=== PATIENT | female | born 1940 | race Caucasian/White ===

== ENCOUNTER 2017-04-04 10:18 | Emergency (ER) | payer MEDICARE, OTHER ==
[~2017-04-04] VITALS: Ht 152.4 cm; Wt 64.0 kg
[2017-04-04 10:28] VITALS: BP 146/77; PULSE 96; RESP 16; TEMP 97.8; O2SAT 97
[2017-04-04] MEDS ORDERED: SODIUM CHLORIDE 0.9% FLUSH 10 ML FLUSH IV FLUSH PRN (10:45)
[2017-04-04] MEDS ORDERED: AMLO5 PO (11:00)
[2017-04-04] MEDS ORDERED: COZA100T PO (11:00)
[2017-04-04] MEDS ORDERED: CARV3.125 PO (11:00)
[2017-04-04] MEDS ORDERED: FURO1TAB62 PO (11:00)
[2017-04-04] MEDS ORDERED: ZOCO20TA PO (11:00)
[2017-04-04] MEDS ORDERED: ADVA500A INH (11:00)
[2017-04-04] MEDS ORDERED: POTA10TA2 PO (11:00)
[2017-04-04] MEDS ORDERED: APIX5TAB PO (11:00)
[2017-04-04] MEDS ORDERED: OMEP20TA93 PO (11:00)
[2017-04-04 11:36] VITALS: RESP 16; O2SAT 98
--- NOTE | 2017-04-04 11:56 | PD ---
HPI Chief Complaint: Abdominal Pain Time Seen by Provider: 11:13 Travel History International Travel<30 days: No Contact w/Intl Traveler<30days: No Traveled to known affect area: No History of Present Illness HPI 76-year-old female with a history of diverticulitis presents emergency department with abdominal pain since 930 last night. Patient states that her pain located in the upper abdomen it feels like "gas". Patient describes her pain as intermittent lasting 10-15 minutes at a time and relieving for 5 minutes. Patient describes pain as gnawing and nonradiating. Patient says she has had one episode of nonbloody vomiting. Patient denies hematochezia, melena. Patient does have a history of small bowel obstruction that was not relieved on its own in 2016. Patient initially stated that she has never had abdominal surgery however, she does admit to surgery for diverticulitis resulting in colectomy in 2005. She does not currently have a colectomy. Patient believes that her symptoms are related to the flu shot she got this year. Patient normally does not get the flu shot. Her last bowel movement was this morning. Currently, she denies pain, nausea or vomiting. Patient does take Eliquis for atrial fibrillation. She does have congestive heart failure as well. PFSH Past Medical History Hx Anticoagulant Therapy: Yes (eliquis) Asthma: Yes Atrial Fibrillation: Yes Cardiovascular Problems: Yes Diminished Hearing: No Diverticulitis: Yes Hypertension: Yes Respiratory: Yes (asthma) Tetanus Vaccination: > 5 Years Influenza Vaccination: Yes ?: Not Menopausal: Yes : 2 Para: 2 Past Surgical History Abdominal Surgery: Yes (colon sx) Other Surgery: Yes (neck sx) Social History Alcohol Use: No Tobacco Use: No Substance Use: No Allergies-Medications (Allergen,Severity, Reaction): Coded Allergies: ibuprofen (Verified Allergy, Intermediate, HIVES, 04/04/17) cephalexin (Verified Allergy, Unknown, HIVES, 04/04/17) Reported Meds & Prescriptions Reported Meds & Active Scripts Active Reported Lasix (Furosemide) 20 Mg Tab 20 Mg PO DAILY Potassium Chloride ER (Potassium Chloride) 10 Meq Tab 10 Meq PO DAILY Advair Diskus Inh (Fluticasone-Salmeterol Inh) 500-50 Mcg/Blist Aer 1 Puff INH BID Rinse mouth after use. Norvasc (Amlodipine Besylate) 5 Mg Tab 5 Mg PO DAILY Cozaar (Losartan Potassium) 100 Mg Tab 100 Mg PO DAILY Zocor (Simvastatin) 20 Mg Tab 20 Mg PO HS Omeprazole 20 Mg Tab 20 Mg PO DAILY Coreg (Carvedilol) 3.125 Mg Tab 3.125 Mg PO BID Eliquis (Apixaban) 5 Mg Tab 5 Mg PO BID Review of Systems Except as stated in HPI: all other systems reviewed are Neg Physical Exam Narrative GENERAL: Well-nourished in no apparent distress, resting comfortably in bed SKIN: Focused skin assessment warm/dry. HEAD: Atraumatic. Normocephalic. EYES: Pupils equal and round. No scleral icterus. No injection or drainage. PERRLA ENT: No nasal bleeding or discharge. Mucous membranes pink and moist. NECK: Trachea midline. No JVD. No lymphadenopathy CARDIOVASCULAR: Regular rate and rhythm. No murmur appreciated. RESPIRATORY: No accessory muscle use. Clear to auscultation. Breath sounds equal bilaterally. GASTROINTESTINAL: Abdomen soft, non-tender. Mildly distended without caput medusa, rashes. Linear midline scar from previous surgery MUSCULOSKELETAL: No obvious deformities. No clubbing. No cyanosis. No edema. NEUROLOGICAL: Awake and alert. No obvious cranial nerve deficits. Motor grossly within normal limits. Normal speech. PSYCHIATRIC: Appropriate mood and affect; insight and judgment normal. Data Data Last Documented VS Vital Signs Date Time Temp Pulse Resp B/P (MAP) Pulse Ox O2 Delivery O2 Flow Rate FiO2 04/04/17 14:15 97.8 76 16 130/78 (95) 99 04/04/17 14:00 Room Air Orders Orders Complete Blood Count With Diff (04/04/17 10:43) Comprehensive Metabolic Panel (04/04/17 10:43) Lipase (04/04/17 10:43) Urinalysis - C+S If Indicated (04/04/17 10:43) Iv Access Insert/Monitor (04/04/17 10:43) Ecg Monitoring (04/04/17 10:43) Oximetry (04/04/17 10:43) Sodium Chloride 0.9% Flush (Ns Flush) (04/04/17 10:45) Ct Abd/Pel W Iv Contrast(Rout) (04/04/17 ) Iohexol 350 Inj (Omnipaque 350 Inj) (04/04/17 13:31) Ed Discharge Order (04/04/17 14:00) Labs Laboratory Tests Test 04/04/17 11:30 04/04/17 11:50 Urine Color YELLOW Urine Turbidity CLEAR Urine pH 7.5 Urine Specific [place] 1.019 Urine Protein 30 mg/dL Urine Glucose (UA) NEG mg/dL Urine Ketones 10 mg/dL Urine Occult Blood NEG Urine Nitrite NEG Urine Bilirubin NEG Urine Urobilinogen 2.0 MG/DL Urine Leukocyte Esterase NEG Urine RBC 3 /hpf Urine WBC 1 /hpf Urine Squamous Epithelial Cells 7 /hpf Urine Mucus FEW /lpf Microscopic Urinalysis Comment CULT NOT INDICATED White Blood Count 7.5 TH/MM3 Red Blood Count 4.18 MIL/MM3 Hemoglobin 13.6 GM/DL Hematocrit 39.9 % Mean Corpuscular Volume 95.4 FL Mean Corpuscular Hemoglobin 32.5 PG Mean Corpuscular Hemoglobin Concent 34.1 % Red Cell Distribution Width 13.6 % Platelet Count 292 TH/MM3 Mean Platelet Volume 7.5 FL Neutrophils (%) (Auto) 84.0 % Lymphocytes (%) (Auto) 9.0 % Monocytes (%) (Auto) 6.6 % Eosinophils (%) (Auto) 0.1 % Basophils (%) (Auto) 0.3 % Neutrophils # (Auto) 6.3 TH/MM3 Lymphocytes # (Auto) 0.7 TH/MM3 Monocytes # (Auto) 0.5 TH/MM3 Eosinophils # (Auto) 0.0 TH/MM3 Basophils # (Auto) 0.0 TH/MM3 CBC Comment DIFF FINAL Differential Comment Blood Urea Nitrogen 14 MG/DL Creatinine 0.83 MG/DL Random Glucose 111 MG/DL Total Protein 8.2 GM/DL Albumin 3.8 GM/DL Calcium Level 9.6 MG/DL Alkaline Phosphatase 100 U/L Aspartate Amino Transf (AST/SGOT) 52 U/L Alanine Aminotransferase (ALT/SGPT) 24 U/L Total Bilirubin 1.5 MG/DL Sodium Level 135 MEQ/L Potassium Level 5.0 MEQ/L Chloride Level 104 MEQ/L Carbon Dioxide Level 21.8 MEQ/L Anion Gap 9 MEQ/L Estimat Glomerular Filtration Rate 67 ML/MIN Lipase 102 U/L MDM Medical Decision Making Medical Screen Exam Complete: Yes Emergency Medical Condition: Yes Differential Diagnosis Small bowel obstruction, gastritis, diverticulitis, nausea, vomiting Narrative Course 76-year-old female with a history of diverticulitis presents emergency department with abdominal pain since 930 last night. Patient states that her pain located in the upper abdomen it feels like "gas". Patient describes her pain as intermittent lasting 10-15 minutes at a time and relieving for 5 minutes. Patient describes pain as gnawing and nonradiating. Patient says she has had one episode of nonbloody vomiting. Patient denies hematochezia, melena. Patient does have a history of small bowel obstruction that was not relieved on its own in 2016. Patient initially stated that she has never had abdominal surgery however, she does admit to surgery for diverticulitis resulting in colectomy in 2005. She does not currently have a colectomy. Patient believes that her symptoms are related to the flu shot she got this year. Patient normally does not get the flu shot. Her last bowel movement was this morning. Currently, she denies pain, nausea or vomiting. Patient does take Eliquis for atrial fibrillation. She does have congestive heart failure as well. Vital signs remained stable throughout the visit. Last Impressions Abdomen/Pelvis CT 04/04/17 0000 Signed Impressions: Service Date/Time: Tuesday, April 04, 2017 13:22 - CONCLUSION: 1. No acute finding is identified to explain the abdominal pain. 2. Nonacute findings include small hiatal hernia and coronary artery calcification. Yasmany Sandra MD Laboratory Tests Test 04/04/17 11:30 04/04/17 11:50 Urine Color YELLOW Urine Turbidity CLEAR Urine pH 7.5 Urine Specific [place] 1.019 Urine Protein 30 mg/dL Urine Glucose (UA) NEG mg/dL Urine Ketones 10 mg/dL Urine Occult Blood NEG Urine Nitrite NEG Urine Bilirubin NEG Urine Urobilinogen 2.0 MG/DL Urine Leukocyte Esterase NEG Urine RBC 3 /hpf Urine WBC 1 /hpf Urine Squamous Epithelial Cells 7 /hpf Urine Mucus FEW /lpf Microscopic Urinalysis Comment CULT NOT INDICATED White Blood Count 7.5 TH/MM3 Red Blood Count 4.18 MIL/MM3 Hemoglobin 13.6 GM/DL Hematocrit 39.9 % Mean Corpuscular Volume 95.4 FL Mean Corpuscular Hemoglobin 32.5 PG Mean Corpuscular Hemoglobin Concent 34.1 % Red Cell Distribution Width 13.6 % Platelet Count 292 TH/MM3 Mean Platelet Volume 7.5 FL Neutrophils (%) (Auto) 84.0 % Lymphocytes (%) (Auto) 9.0 % Monocytes (%) (Auto) 6.6 % Eosinophils (%) (Auto) 0.1 % Basophils (%) (Auto) 0.3 % Neutrophils # (Auto) 6.3 TH/MM3 Lymphocytes # (Auto) 0.7 TH/MM3 Monocytes # (Auto) 0.5 TH/MM3 Eosinophils # (Auto) 0.0 TH/MM3 Basophils # (Auto) 0.0 TH/MM3 CBC Comment DIFF FINAL Differential Comment Blood Urea Nitrogen 14 MG/DL Creatinine 0.83 MG/DL Random Glucose 111 MG/DL Total Protein 8.2 GM/DL Albumin 3.8 GM/DL Calcium Level 9.6 MG/DL Alkaline Phosphatase 100 U/L Aspartate Amino Transf (AST/SGOT) 52 U/L Alanine Aminotransferase (ALT/SGPT) 24 U/L Total Bilirubin 1.5 MG/DL Sodium Level 135 MEQ/L Potassium Level 5.0 MEQ/L Chloride Level 104 MEQ/L Carbon Dioxide Level 21.8 MEQ/L Anion Gap 9 MEQ/L Estimat Glomerular Filtration Rate 67 ML/MIN Lipase 102 U/L As no evidence of acute abdomen today. CT abdomen pelvis demonstrates likely hernia. Patient remained stable throughout the visit. patient will be discharged and advised patient to follow-up with her primary care physician within 2-3 days. Return to the emergency room for worsening or persistent symptoms. Please see my attendings note, Dr. Red as well regarding this patient. Diagnosis Primary Impression: Hiatal hernia Additional Impression: Abdominal pain Qualified Codes: R10.10 - Upper abdominal pain, unspecified Referrals: [facility]ade Sharpener Primary Care Physician Additional Instructions: Follow up with your primary care physician within 2-3 days. If your symptoms persist or worsen, return to the emergency department. If abdominal pain returns or worsen return to the emergency department. I recommended follow-up with a gastrointestinal doctor regarding your abdominal pain. Disposition: 01 DISCHARGE HOME Condition: Stable Alyce Montoya Apr 04, 2017 11:56
[2017-04-04 12:00] VITALS: BP 136/81; PULSE 89; RESP 17; TEMP 97.8; O2SAT 99
[2017-04-04 12:09] LABS: AUTOMATED NEUTROPHIL # 6.3 TH/MM3 (1.8-7.7); BASOPHIL % 0.3 % (0.0-2.0); EOSINOPHIL % 0.1 % (0.0-4.0); HEMATOCRIT 39.9 % (35.0-46.0); HEMOGLOBIN 13.6 GM/DL (11.6-15.3); LYMPHOCYTE # 0.7 TH/MM3 (1.0-4.8); MEAN CELL VOLUME 95.4 FL (80.0-100.0); MEAN CORPUSCULAR HEMOGLOBIN 32.5 PG (27.0-34.0); MEAN CORPUSCULAR HGB CONC 34.1 % (32.0-36.0); MEAN PLATELET VOLUME 7.5 FL (7.0-11.0); MONO % 6.6 % (0.0-8.0); MONOCYTE # 0.5 TH/MM3 (0-0.9); PLATELET COUNT 292 TH/MM3 (150-450); RED BLOOD COUNT 4.18 MIL/MM3 (4.00-5.30); RED CELL DISTRIBUTION WIDTH 13.6 % (11.6-17.2); WHITE BLOOD COUNT 7.5 TH/MM3 (4.0-11.0)
[2017-04-04 12:19] LABS: BILIRUBIN, URINE NEG (NEG); BLOOD, URINE NEG (NEG); GLUCOSE,URINE NEG (NEG); KETONE, URINE 10 mg/dL (NEG); MUCUS URINE FEW /lpf (OCC); NITRITE,URINE NEG (NEG); PH, URINE 7.5 (5.0-8.5); SQUAMOUS EPITHELIAL CELL URINE 7 /hpf (0-5); URINE COLOR YELLOW (YELLW/STRAW); URINE LEUKOCYTE ESTERASE NEG (NEG)
[2017-04-04 12:38] LABS: ALT (GPT) 24 U/L (10-53)
[2017-04-04 12:41] LABS: ALKALINE PHOSPHATASE 100 U/L (45-117); TOTAL BILIRUBIN ADULT 1.5 MG/DL (0.2-1.0); TOTAL PROTEIN 8.2 GM/DL (6.4-8.2)
[2017-04-04 12:56] LABS: ALBUMIN 3.8 GM/DL (3.4-5.0); BICARBONATE 21.8 MEQ/L (21.0-32.0); BLOOD UREA NITROGEN 14 MG/DL (7-18); CALCIUM 9.6 MG/DL (8.5-10.1); CHLORIDE 104 MEQ/L (98-107); CREATININE 0.83 MG/DL (0.50-1.00); GLOMERULAR FILTRATION RATE 67 ML/MIN (>89); GLUCOSE,RANDOM 111 MG/DL (74-106); LIPASE 102 U/L (73-393); SODIUM (NA) 135 MEQ/L (136-145)
[2017-04-04 12:57] LABS: AST (GOT) 52 U/L (15-37)
[2017-04-04] MEDS ORDERED: IOHEXOL 350 MG/ML 10 ML VIAL (for RAD DIAG) IVCONTRAST ONE (13:31)
--- NOTE | 2017-04-04 13:55 | RADRPT ---
EXAM DATE/TIME: 04/04/2017 13:22 [facility] COMPARISON: No previous studies available for comparison. INDICATIONS : Abdominal pain IV CONTRAST: 96 cc Omnipaque 350 (iohexol) IV ORAL CONTRAST: No oral contrast ingested. RADIATION DOSE: 6.64 CTDIvol (mGy) MEDICAL HISTORY : Cardiovascular disease. Hypertension. Diverticulitis. SURGICAL HISTORY : Colon surgery ENCOUNTER: Initial ACUITY: 1 day PAIN SCALE: 2/10 LOCATION: Abdomen TECHNIQUE: Volumetric scanning of the abdomen and pelvis was performed. Using automated exposure control and ad justment of the mA and/or kV according to patient size, radiation dose was kept as low as reasonably achievable to obtain optimal diagnostic quality images. DICOM format image data is available electro nically for review and comparison. FINDINGS: LOWER LUNGS: There is mild atelectasis at the right lung base. There is coronary artery calcification. LIVER: Homogeneous density without lesion. There is no dilation of the biliary tree. No calcified gallston es. SPLEEN: Normal size without lesion. PANCREAS: Within normal limits. KIDNEYS: Normal in size and shape. There is no mass, stone or hydronephrosis. ADRENAL GLANDS: Within normal limits. VASCULAR: There is no aortic aneurysm. There is mild atherosclerotic disease of the aorta. BOWEL/MESENTERY: Small hiatal hernia is present. Small bowel demonstrates no abnormality. The appendix and terminal il eum are normal. There has been prior surgery in the distal sigmoid colon with bowel staple line and i nto side anastomosis. There are additional clips in the pelvis. No free air or free fluid is seen. ABDOMINAL WALL: Within normal limits. RETROPERITONEUM: There is no lymphadenopathy. BLADDER: No wall thickening or mass. REPRODUCTIVE: The uterus is absent. INGUINAL: There is no lymphadenopathy or hernia. MUSCULOSKELETAL: There are mild degenerative changes of the lumbar spine with pubic symphyseal sclerosis. CONCLUSION: 1. No acute finding is identified to explain the abdominal pain. 2. Nonacute findings include small hiatal hernia and coronary artery calcification. Yasmany Sandra MD on April 04, 2017 at 13:47 Board Certified Radiologist. This report was verified electronically.
[2017-04-04 14:00] VITALS: BP 133/81; PULSE 88; RESP 16; TEMP 97.8; O2SAT 99
--- NOTE | 2017-04-04 14:02 | PD ---
Data Data Last Documented VS Vital Signs Date Time Temp Pulse Resp B/P (MAP) Pulse Ox O2 Delivery O2 Flow Rate FiO2 04/04/17 12:00 97.8 89 17 136/81 (99) 99 Room Air Orders Orders Complete Blood Count With Diff (04/04/17 10:43) Comprehensive Metabolic Panel (04/04/17 10:43) Lipase (04/04/17 10:43) Urinalysis - C+S If Indicated (04/04/17 10:43) Iv Access Insert/Monitor (04/04/17 10:43) Ecg Monitoring (04/04/17 10:43) Oximetry (04/04/17 10:43) Sodium Chloride 0.9% Flush (Ns Flush) (04/04/17 10:45) Ct Abd/Pel W Iv Contrast(Rout) (04/04/17 ) Iohexol 350 Inj (Omnipaque 350 Inj) (04/04/17 13:31) Ed Discharge Order (04/04/17 14:00) Labs Laboratory Tests Test 04/04/17 11:30 04/04/17 11:50 Urine Color YELLOW Urine Turbidity CLEAR Urine pH 7.5 Urine Specific [place] 1.019 Urine Protein 30 mg/dL Urine Glucose (UA) NEG mg/dL Urine Ketones 10 mg/dL Urine Occult Blood NEG Urine Nitrite NEG Urine Bilirubin NEG Urine Urobilinogen 2.0 MG/DL Urine Leukocyte Esterase NEG Urine RBC 3 /hpf Urine WBC 1 /hpf Urine Squamous Epithelial Cells 7 /hpf Urine Mucus FEW /lpf Microscopic Urinalysis Comment CULT NOT INDICATED White Blood Count 7.5 TH/MM3 Red Blood Count 4.18 MIL/MM3 Hemoglobin 13.6 GM/DL Hematocrit 39.9 % Mean Corpuscular Volume 95.4 FL Mean Corpuscular Hemoglobin 32.5 PG Mean Corpuscular Hemoglobin Concent 34.1 % Red Cell Distribution Width 13.6 % Platelet Count 292 TH/MM3 Mean Platelet Volume 7.5 FL Neutrophils (%) (Auto) 84.0 % Lymphocytes (%) (Auto) 9.0 % Monocytes (%) (Auto) 6.6 % Eosinophils (%) (Auto) 0.1 % Basophils (%) (Auto) 0.3 % Neutrophils # (Auto) 6.3 TH/MM3 Lymphocytes # (Auto) 0.7 TH/MM3 Monocytes # (Auto) 0.5 TH/MM3 Eosinophils # (Auto) 0.0 TH/MM3 Basophils # (Auto) 0.0 TH/MM3 CBC Comment DIFF FINAL Differential Comment Blood Urea Nitrogen 14 MG/DL Creatinine 0.83 MG/DL Random Glucose 111 MG/DL Total Protein 8.2 GM/DL Albumin 3.8 GM/DL Calcium Level 9.6 MG/DL Alkaline Phosphatase 100 U/L Aspartate Amino Transf (AST/SGOT) 52 U/L Alanine Aminotransferase (ALT/SGPT) 24 U/L Total Bilirubin 1.5 MG/DL Sodium Level 135 MEQ/L Potassium Level 5.0 MEQ/L Chloride Level 104 MEQ/L Carbon Dioxide Level 21.8 MEQ/L Anion Gap 9 MEQ/L Estimat Glomerular Filtration Rate 67 ML/MIN Lipase 102 U/L MDM Supervised Visit with EDEN: Yes Narrative Course The history, exam, and medical decision-making in the associated midlevel provider note were completed with my assistance. I reviewed and agree with the findings presented. I attest that I had a [id number] encounter with the patient on the same day, and personally performed and documented my assessment and findings in the medical record. *My assessment and Findings: This is a 76-year-old female who presents to the emergency department with abdominal discomfort that started this morning associated with one episode of vomiting. She has a history of bowel obstruction and diverticulitis in the past. Labs were obtained which are reassuring. CT abdomen and pelvis is unremarkable. Patient's pain has completely resolved. I think she can be discharged home. Diagnosis Primary Impression: Hiatal hernia Additional Impression: Abdominal pain Qualified Codes: R10.10 - Upper abdominal pain, unspecified Referrals: [facility] [employer] [facility] Primary Care Physician Additional Instruction: Follow up with your primary care physician within 2-3 days. If your symptoms persist or worsen, return to the emergency department. If abdominal pain returns or worsen return to the emergency department. I recommended follow-up with a gastrointestinal doctor regarding your abdominal pain. Disposition: 01 DISCHARGE HOME Condition: Stable Jailene Red MD Apr 04, 2017 14:02
[2017-04-04 14:15] VITALS: BP 130/78; TEMP 97.8
[2017-04-08] MEDS ORDERED: TRAM50 PO (22:57)
[2017-04-08] MEDS ORDERED: ZOFR4TAB3 SL (23:14)
== END 2017-04-04 14:50 | disposition home or self-care (01) ==
LOC: NEPC 10:18 → NEDAMB 14:50
DX: K44.9 Diaphragmatic hernia without obstruction or gangrene (principal); I10 Essential (primary) hypertension; Z79.01 Long term (current) use of anticoagulants
CPT/HCPCS: 74177; 80053; 81001; 83690; 85025; 99284; Q9967

== ENCOUNTER 2017-04-08 21:16 | Emergency (ER) | payer MEDICARE, OTHER ==
[2017-04-08] MEDS ORDERED: SODIUM CHLORIDE 0.9% FLUSH 10 ML FLUSH IV FLUSH (21:30)
[2017-04-08] MEDS: MORPHINE SULFATE 4 MG/ML INJ IV PUSH (22:06)
[2017-04-08] MEDS: ONDANSETRON HCL 4 MG/2 ML VIAL IVP (22:06)
[2017-04-08 22:15] LABS: AUTOMATED NEUTROPHIL # 4.9 TH/MM3 (1.8-7.7); BASOPHIL # 0.1 TH/MM3 (0-0.2); BASOPHIL % 1.5 % (0.0-2.0); EOSINOPHIL # 0.1 TH/MM3 (0-0.4); EOSINOPHIL % 1.1 % (0.0-4.0); HEMATOCRIT 39.4 % (35.0-46.0); HEMOGLOBIN 12.8 GM/DL (11.6-15.3); LYMPH % 11.3 % (9.0-44.0); LYMPHOCYTE # 0.7 TH/MM3 (1.0-4.8); MEAN CELL VOLUME 93.3 FL (80.0-100.0); MEAN CORPUSCULAR HEMOGLOBIN 30.3 PG (27.0-34.0); MEAN CORPUSCULAR HGB CONC 32.5 % (32.0-36.0); MEAN PLATELET VOLUME 7.5 FL (7.0-11.0); MONO % 6.7 % (0.0-8.0); MONOCYTE # 0.4 TH/MM3 (0-0.9); NEUT % 79.4 % (16.0-70.0); PLATELET COUNT 274 TH/MM3 (150-450); RED BLOOD COUNT 4.22 MIL/MM3 (4.00-5.30); RED CELL DISTRIBUTION WIDTH 12.9 % (11.6-17.2); WHITE BLOOD COUNT 6.2 TH/MM3 (4.0-11.0)
[2017-04-08 22:21] LABS: HEMO FLAGS DIFF FINAL
[2017-04-08 22:23] LABS: CHLORIDE 103 MEQ/L (98-107); SODIUM (NA) 138 MEQ/L (136-145)
[2017-04-08 22:27] LABS: ALBUMIN 3.9 GM/DL (3.4-5.0); ANION GAP 7 MEQ/L (5-15); BICARBONATE 27.6 MEQ/L (21.0-32.0); BLOOD UREA NITROGEN 12 MG/DL (7-18); CALCIUM 9.8 MG/DL (8.5-10.1); GLUCOSE,RANDOM 134 MG/DL (74-106); LIPASE 274 U/L (73-393); PROTHROMBIN TIME - PATIENT 10.3 SEC (9.8-11.6)
[2017-04-08 22:30] LABS: ALT (GPT) 20 U/L (10-53); AST (GOT) 21 U/L (15-37); CREATININE 0.81 MG/DL (0.50-1.00); GLOMERULAR FILTRATION RATE 69 ML/MIN (>89)
[2017-04-08 22:32] LABS: TOTAL BILIRUBIN ADULT 1.1 MG/DL (0.2-1.0); TOTAL PROTEIN 7.9 GM/DL (6.4-8.2)
[2017-04-08 22:33] LABS: ALKALINE PHOSPHATASE 95 U/L (45-117)
== END 2017-04-08 23:17 | disposition home or self-care (01) ==
LOC: PHED 21:16
DX: K44.9 Diaphragmatic hernia without obstruction or gangrene (principal); J45.909 Unspecified asthma, uncomplicated; I48.91 Unspecified atrial fibrillation; I10 Essential (primary) hypertension; Z79.01 Long term (current) use of anticoagulants
CPT/HCPCS: 80053; 83690; 85025; 85610; 85730; 93005; 96374; 96375; 99284-25